=== PATIENT | female | born 1975 | race American Indian/Alaskan Native ===

== ENCOUNTER 2016-10-03 17:31 | Emergency (ER) | payer OTHER ==
--- NOTE | 2016-10-03 19:36 | Emergency Department Report ---
HPI - General Chief Complaint: Upper Respiratory Infection Time Seen by Provider: 10/03/16 19:26 - HPI HPI: Patient here reported that she's having coughing, wheezing and chest tightness. She says she has a history of bronchitis and asthma. She does not have any of her asthma medication. She denies any fever or chills. No medication used prior to coming to the hospital. She says when she coughed her chest hurts at 6 out of 10. Denies any nausea or vomiting. Denies any stridor. She says she' s had similar incident in the past. ED Past Medical Hx - Past Medical History Previous Medical History?: Yes Hx Asthma: Yes - Surgical History Past Surgical History?: Yes Additional Surgical History: c-sec x 3 - Family History Family history: no significant - Social History Smoking Status: Never Smoker Substance Use Type: None - Medications Home Medications: Home Medications Medication Instructions Recorded Confirmed Last Taken Type Albuterol Sulfate [Ventolin HFA] 2 puff IH Q4H PRN #1 hfa.aer.ad 10/04/16 Unknown Rx Amoxicillin/K Clav Tab [Augmentin 1 tab PO Q12HR #20 tab 10/04/16 Unknown Rx 875 mg] Cetirizine HCl [ZyrTEC] 10 mg PO QAM #14 capsule 10/04/16 Unknown Rx guaiFENesin/CODEINE [Robitussin AC] 10 ml PO QHS PRN #70 ml 10/04/16 Unknown Rx predniSONE [Deltasone] 50 mg PO QDAY #5 tab 10/04/16 Unknown Rx ED Review of Systems ROS: Stated complaint: COUGHING Other details as noted in HPI Comment: All other systems reviewed and negative Constitutional: denies: chills, fever, weakness Eyes: denies: eye discharge ENT: denies: throat pain, congestion Respiratory: no symptoms reported Cardiovascular: denies: chest pain, palpitations, edema, syncope Gastrointestinal: denies: abdominal pain, nausea, vomiting Musculoskeletal: denies: back pain, arthralgia Skin: denies: rash Neurological: denies: headache, weakness, numbness, paresthesias, confusion, abnormal gait, vertigo Physical Exam - Physical Exam Vital Signs: Vital Signs 10/03/16 17:47 Temperature 98.6 F Pulse Rate 73 Respiratory 20 Rate Blood Pressure 122/72 O2 Sat by Pulse 100 Oximetry Vital Signs 10/03/16 10/03/16 10/03/16 17:47 19:51 20:10 Temperature 98.6 F Pulse Rate 73 Pulse Rate [ 53 L 59 L Anterior Bilateral Throughout] Respiratory 20 Rate Respiratory 17 18 Rate [Anterior Bilateral Throughout] Blood Pressure 122/72 Blood Pressure [Right] O2 Sat by Pulse 100 Oximetry 10/03/16 10/03/16 10/03/16 20:44 21:00 23:20 Temperature 98.1 F Pulse Rate 81 Pulse Rate [ 87 91 H Anterior Bilateral Throughout] Respiratory 20 Rate Respiratory 19 19 Rate [Anterior Bilateral Throughout] Blood Pressure Blood Pressure 115/61 [Right] O2 Sat by Pulse 100 Oximetry General: This is a 41-year-old female well-nourished well-developed in mild distress because she said she's wheezing and coughing. Physical Exam: Head: Normocephalic atraumatic Mouth: Moist, no pharyngeal exudate or erythema. Uvula is midline and oral airway is patent. No facial swelling. No peritonsillar abscesses. Nose: Congested with erythema to mucosa. Clear Drainage. Maxillary and frontal sinuses nontender to palpate Neck: Supple, no C-spine tenderness, no tracheal deviation. Nontender to palpate. no adenopathy Ears: Bilateral TMs congested without erythema. Bilateral EAC without any redness swelling or drainage. Abdomen: Soft, nontender to palpate in all quadrants, normal bowel sounds in all quadrant and negative CVA tenderness bilaterally. Eyes: Bilateral pupils equal and reactive to light, bilateral EOM intact. Bilateral sclera and conjunctiva without injection. Normal accommodation. Lungs: Wheezing throughout lung saravia. Mild increased work of breathing . Dry cough extremity; No CCE. +2 pulses. No neurovascular compromise Cardiovascular: S1-S2, regular rate rhythm. No murmurs. Skin: clean Dry and intact no rash no lesions Psych: Normal mood and behavior ED Course Vital Signs 10/03/16 17:47 Temperature 98.6 F Pulse Rate 73 Respiratory 20 Rate Blood Pressure 122/72 O2 Sat by Pulse 100 Oximetry Vital Signs 10/03/16 10/03/16 10/03/16 17:47 19:51 20:10 Temperature 98.6 F Pulse Rate 73 Pulse Rate [ 53 L 59 L Anterior Bilateral Throughout] Respiratory 20 Rate Respiratory 17 18 Rate [Anterior Bilateral Throughout] Blood Pressure 122/72 Blood Pressure [Right] O2 Sat by Pulse 100 Oximetry 10/03/16 10/03/16 10/03/16 20:44 21:00 23:20 Temperature 98.1 F Pulse Rate 81 Pulse Rate [ 87 91 H Anterior Bilateral Throughout] Respiratory 20 Rate Respiratory 19 19 Rate [Anterior Bilateral Throughout] Blood Pressure Blood Pressure 115/61 [Right] O2 Sat by Pulse 100 Oximetry - Reevaluation(s) Reevaluation #1: 10/04/16 00:11 Patient given a total of 10 mg of albuterol at 5 mg increments and 0.5 of Atrovent nebulizer treatment. She was also given prednisone 60 mg by mouth. Patient reports that she was feeling better after second albuterol treatment. Upon reevaluation, patient lungs sounds clear. She says she felt better. Her vital signs are stable. ED Medical Decision Making - Lab Data Result diagrams: 10/03/16 20:54 10/03/16 20:54 Lab Results 10/03/16 10/03/16 10/03/16 Range/Units 20:54 20:54 20:54 WBC 11.4 H (4.5-11.0) K/mm3 RBC 4.81 (3.65-5.03) M/mm3 Hgb 10.6 (10.1-14.3) gm/dl Hct 33.3 (30.3-42.9) % MCV 69 L (79-97) fl MCH 22 L (28-32) pg MCHC 32 (30-34) % RDW 18.9 H (13.2-15.2) % Plt Count 269 (140-440) K/mm3 Lymph % (Auto) 18.9 (13.4-35.0) % [place] % (Auto) 4.7 (0.0-7.3) % Eos % (Auto) 0.2 (0.0-4.3) % Baso % (Auto) 0.4 (0.0-1.8) % Lymph # 2.2 (1.2-5.4) K/mm3 [place] # 0.5 (0.0-0.8) K/mm3 Eos # 0.0 (0.0-0.4) K/mm3 Baso # 0.0 (0.0-0.1) K/mm3 Seg Neutrophils % 75.8 H (40.0-70.0) % Seg Neutrophils # 8.6 H (1.8-7.7) K/mm3 D-Dimer < 135.00 (0-234) ng/mlDDU VBG pH (7.320-7.420) Sodium 140 (137-145) mmol/L Potassium 3.8 (3.6-5.0) mmol/L Chloride 101.4 (98-107) mmol/L Carbon Dioxide 23 (22-30) mmol/L Anion Gap 19 mmol/L BUN 9 (7-17) mg/dL Creatinine 0.8 (0.7-1.2) mg/dL Estimated GFR > 60 ml/min BUN/Creatinine Ratio 11.25 % Glucose 142 H (65-100) mg/dL Calcium 9.2 (8.4-10.2) mg/dL 10/03/16 Range/Units 21:18 WBC (4.5-11.0) K/mm3 RBC (3.65-5.03) M/mm3 Hgb (10.1-14.3) gm/dl Hct (30.3-42.9) % MCV (79-97) fl MCH (28-32) pg MCHC (30-34) % RDW (13.2-15.2) % Plt Count (140-440) K/mm3 Lymph % (Auto) (13.4-35.0) % [place] % (Auto) (0.0-7.3) % Eos % (Auto) (0.0-4.3) % Baso % (Auto) (0.0-1.8) % Lymph # (1.2-5.4) K/mm3 [place] # (0.0-0.8) K/mm3 Eos # (0.0-0.4) K/mm3 Baso # (0.0-0.1) K/mm3 Seg Neutrophils % (40.0-70.0) % Seg Neutrophils # (1.8-7.7) K/mm3 D-Dimer (0-234) ng/mlDDU VBG pH 7.370 (7.320-7.420) Sodium (137-145) mmol/L Potassium (3.6-5.0) mmol/L Chloride (98-107) mmol/L Carbon Dioxide (22-30) mmol/L Anion Gap mmol/L BUN (7-17) mg/dL Creatinine (0.7-1.2) mg/dL Estimated GFR ml/min BUN/Creatinine Ratio % Glucose (65-100) mg/dL Calcium (8.4-10.2) mg/dL - Radiology Data Radiology results: report reviewed Chest x-ray revealed no acute cardiopulmonary processes. - Medical Decision Making ED Course: Patient with acute bronchitis, cough, leukocytosis. CBC with white count slightly elevated with shift to left, MCV and MCH mildly decreased, RDW elevated otherwise CBC is normal. BMP normal except her glucose was 142. Venous pH is normal and her d-dimer is normal. This was all explained to patient. She voiced understanding. Diagnosis and treatment plan explained to patient and she voiced understanding. Given the fact the patient has chronic asthma and bronchitis I will put her on antibiotic because she has a white count which is minimal and minimal shifting to the left. Patient given Rocephin 1 g IM, nebulizer treatment with albuterol 10 mg in 5 mg increments and Atrovent 0.5 mg nebulizer . She was also given dexamethasone 6 mg by mouth. Patient says she is feeling a lot better and she is discharged home with prescription for Ventolin HFA, Augmentin, guaifenesin with codeine, prednisone and Zyrtec. Patient does have a primary care physician so I discussed with her that she needs to follow-up with primary care physician in 2- 3 days. Critical care attestation.: If time is entered above; I have spent that time in minutes in the direct care of this critically ill patient, excluding procedure time. ED Disposition Clinical Impression: Cough Acute bronchitis Qualifiers: Bronchitis organism: unspecified organism Qualified Code(s): J20.9 - Acute bronchitis, unspecified Leukocytosis, unspecified Qualifiers: Leukocytosis type: unspecified Qualified Code(s): D72.829 - Elevated white blood cell count, unspecified Disposition: DISCHARGED TO HOME OR SELFCARE Is pt being admited?: No Does the pt Need Aspirin: No Condition: Stable Instructions: Acute Bronchitis (ED), Acute Cough (ED), Leukocytosis (ED) Additional Instructions: Please increase her fluid intake Take antibiotic as prescribed Please do not drive or operate heavy machinery while on cough medicine as it can cause drowsiness. Please follow-up with your primary care doctor i in 2-3 days Please rest for 72 hours. Prescriptions: guaiFENesin/CODEINE [Robitussin AC] 10 ml PO QHS PRN #70 ml PRN Reason: Cough Albuterol Sulfate [Ventolin HFA] 2 puff IH Q4H PRN #1 hfa.aer.ad PRN Reason: COUGH AND WHEEZING Amoxicillin/K Clav Tab [Augmentin 875 mg] 1 tab PO Q12HR #20 tab Cetirizine HCl [ZyrTEC] 10 mg PO QAM #14 capsule predniSONE [Deltasone] 50 mg PO QDAY #5 tab Referrals: PRIMARY CARE, [Primary Care Provider] - 2-3 Days Forms: Work/School Release Form(ED)
[2016-10-03] MEDS ORDERED: DELTASONE PO ONE (19:37)
[2016-10-03] MEDS ORDERED: PROVENTIL IH ONE ×2 (19:37→20:41)
[2016-10-03] MEDS ORDERED: ATROVENT IH ONE (19:37)
[2016-10-03 21:31] LABS: Anion Gap 19 mmol/L; BUN/Creatinine Ratio 11.25; Blood Urea Nitrogen 9 mg/dL (7-17); Calcium 9.2 mg/dL (8.4-10.2); Carbon Dioxide 23 mmol/L (22-30); Chloride 101.4 mmol/L (98-107); Glucose 142 mg/dL (65-100); Potassium 3.8 mmol/L (3.6-5.0); Sodium 140 mmol/L (137-145)
[2016-10-03 21:49] LABS: Basophils % (Auto) 0.4 % (0.0-1.8); Eosinophils % (Auto) 0.2 % (0.0-4.3); Hematocrit 33.3 % (30.3-42.9); Hemoglobin 10.6 gm/dl (10.1-14.3); Mean Corpuscular HGB Conc 32 % (30-34); Platelet Count 269 K/mm3 (140-440); Red Blood Count 4.81 M/mm3 (3.65-5.03); Red Cell Distribution Width 18.9 % (13.2-15.2); White Blood Count 11.4 K/mm3 (4.5-11.0)
[2016-10-03 21:58] LABS: Mean Corpuscular Hemoglobin 22 pg (28-32); Mean Corpuscular Volume 69 fl (79-97)
--- NOTE | 2016-10-03 22:43 | XRay Report ---
FINAL REPORT EXAM: XR CHEST ROUTINE 2V HISTORY: cough, wheezing TECHNIQUE: PA and lateral views of the chest PRIORS: None. FINDINGS: Lines, tubes, and devices: N/A Lungs and pleura: Trachea is normal in position. Lungs are clear of infiltrate, pleural effusion, vascular congestion, or pneumothorax. Cardiomediastinal silhouette: Cardiac and mediastinal silhouettes are unremarkable. Other: Bony structures are intact. IMPRESSION: No acute cardiopulmonary process seen.
[2016-10-03 23:20] VITALS: BP 115/61
[2016-10-04] MEDS ORDERED: XYLOCAINE 1% MPF 5 mL INFILTRATI ONE (00:22)
[2016-10-04] MEDS ORDERED: ROCEPHIN IM STA (00:22)
== END 2016-10-04 00:50 | disposition home or self-care (01) ==
LOC: ED 17:31
DX: J20.9 Acute bronchitis, unspecified (principal); D72.829 Elevated white blood cell count, unspecified; R05 Cough; J45.909 Unspecified asthma, uncomplicated
CPT/HCPCS: 36415; 71020; 80048; 82805; 85025; 85379; 94640; 96372; 99284; J0696; J7512